=== PATIENT | female | born 1985 | race Caucasian/White ===

== ENCOUNTER 2016-11-10 00:01 | Inpatient (IN) | payer OTHER ==
[~2016-11-10] VITALS: Ht 170.2 cm; Wt 127.0 kg
[~2016-11-10 00:01] MED LIST: AMPICILLIN SODIUM 2 GM VIAL ONE; OXYTOCIN/NORMAL SALINE 1,000 ML IV ONE
[2016-11-10] MEDS ORDERED: OXYTOCIN/NORMAL SALINE 1,000 ML IV SCH (00:25)
[2016-11-10] MEDS ORDERED: LR 1,000 ML IV SCH (00:25)
[2016-11-10] MEDS ORDERED: AMPICILLIN SODIUM 2 GM in NS 100 ML IV ONE (00:30)
[2016-11-10] MEDS ORDERED: TERBUTALINE SULFATE 1 MG/ML VIAL SUBCUT ONE (00:30)
[2016-11-10 00:51] VITALS: BP 118/61; PULSE 90; RESP 18; TEMP 98.5
[2016-11-10 01:39] LABS: BASOPHILS % (AUTO) 0.2 % (0.0-2.0); EOSINOPHILS # (AUTO) 0.1 K/uL (0.0-0.4); EOSINOPHILS % (AUTO) 0.7 % (0.0-4.0); HEMATOCRIT 30.2 % (36-48); HEMOGLOBIN 10.2 g/dL (12.0-16.0); LYMPHOCYTES # (AUTO) 2.1 K/uL (1.0-5.5); LYMPHOCYTES % (AUTO) 23.6 % (20.5-51.5); MEAN CORPUSCULAR HEMOGLOBIN 30 pg (27-31); MEAN CORPUSCULAR HGB CONC 34 % (32-36); MEAN CORPUSCULAR VOLUME 89 fL (79.0-98.0); MONOCYTES # (AUTO) 1.1 K/uL (0.0-1.0); MONOCYTES % (AUTO) 11.9 % (1.7-9.3); NEUTROPHILS # (AUTO) 5.6 K/uL (1.8-7.7); NEUTROPHILS % (AUTO) 63.6 % (40.0-70.0); PLATELET COUNT (AUTO) 216 K/uL (130-430); RED CELL DISTRIBUTION WIDTH 13.6 % (9.0-15.0); WHITE BLOOD COUNT (AUTO) 8.9 K/uL (4.8-10.8)
[2016-11-10] MEDS ORDERED: AMPICILLIN SODIUM 1 GM VIAL ONE (03:45)
[2016-11-10] MEDS: AMPICILLIN SODIUM 1 GM in NS 50 ML IV SCH ×3 (05:00→12:56)
[2016-11-10] MEDS ORDERED: FENT2mCg/mL-ROPIVA0.2%/NS EPID 150 ML EP ONE (07:19)
[2016-11-10] MEDS ORDERED: fentaNYL CITRATE/PF 100 MCG/2 ML AMP ONE (07:56)
[2016-11-10] MEDS ORDERED: LR 500 ML IV ONE (08:24)
[2016-11-10] MEDS ORDERED: fentaNYL CITRATE/PF 100 MCG/2 ML AMP EP ONE (08:30)
[2016-11-10] MEDS ORDERED: ePHEDrine sulfate 50 MG/ML VIAL IVP PRN (08:30)
[2016-11-10] MEDS ORDERED: FENT2mCg/mL-ROPIVA0.2%/NS EPID 150 ML EP SCH (08:30)
[2016-11-10] MEDS ORDERED: OXYTOCIN/NORMAL SALINE 1,000 ML IV ONE (17:33)
[2016-11-10] MEDS ORDERED: IBUPROFEN 600 MG TABLET ONE (17:38)
[2016-11-10] MEDS ORDERED: GLYCERIN/WITCH HAZEL (TUCKS PADS) TP PRN (17:45)
[2016-11-10] MEDS ORDERED: DERMOPLAST SPRAY TP PRN (17:45)
[2016-11-10] MEDS ORDERED: DOCUSATE SODIUM 100 MG CAPSULE PO PRN (17:45)
[2016-11-10] MEDS ORDERED: OXYCODONE/ACETAMINOPHEN 5-325 TABLET PO PRN ×2 (17:45)
[2016-11-10] MEDS ORDERED: LANOLIN 7 GM OINT. TP PRN (17:45)
[2016-11-10] MEDS ORDERED: ANUSOL 1 EA SUPP.RECT (PREPARATION H) RC PRN (17:45)
[2016-11-11] MEDS: IBUPROFEN 600 MG TABLET PO SCH ×2 (00:22→05:38)
[2016-11-11 08:41] LABS: BASOPHILS % (AUTO) 0.2 % (0.0-2.0); EOSINOPHILS % (AUTO) 0.4 % (0.0-4.0); HEMATOCRIT 24.6 % (36-48); LYMPHOCYTES # (AUTO) 1.8 K/uL (1.0-5.5); LYMPHOCYTES % (AUTO) 17.2 % (20.5-51.5); MEAN CORPUSCULAR HEMOGLOBIN 31 pg (27-31); MEAN CORPUSCULAR HGB CONC 35 % (32-36); MEAN CORPUSCULAR VOLUME 90 fL (79.0-98.0); MONOCYTES # (AUTO) 1.1 K/uL (0.0-1.0); MONOCYTES % (AUTO) 10.8 % (1.7-9.3); NEUTROPHILS # (AUTO) 7.7 K/uL (1.8-7.7); NEUTROPHILS % (AUTO) 71.4 % (40.0-70.0); PLATELET COUNT (AUTO) 187 K/uL (130-430); RED BLOOD CELL COUNT(AUTO) 2.73 MIL/uL (4.2-6.2); RED CELL DISTRIBUTION WIDTH 13.7 % (9.0-15.0); WHITE BLOOD COUNT (AUTO) 10.6 K/uL (4.8-10.8)
[2016-11-11 09:13] LABS: HEMOGLOBIN 8.5 g/dL (12.0-16.0)
== END 2016-11-11 17:30 | disposition home or self-care (01) | DRG 775 ==
LOC: SPU 00:01
PROVIDERS: ADMIT Specialist; ATTEND Specialist
PROC: 10D07Z6 Extraction of Products of Conception, Vacuum, Via Natural or Artificial Opening (ICD-10-PCS; principal; 2016-11-10)
PROC: 3E0S3CZ (ICD-10-PCS; 2016-11-10)
PROC: 00HU33Z Insertion of Infusion Device into Spinal Canal, Percutaneous Approach (ICD-10-PCS; 2016-11-10)
PROC: 3E033VJ Introduction of Other Hormone into Peripheral Vein, Percutaneous Approach (ICD-10-PCS; 2016-11-10)
PROC: 0W8NXZZ Division of Female Perineum, External Approach (ICD-10-PCS; 2016-11-10)
PROC: 30233N1 Transfusion of Nonautologous Red Blood Cells into Peripheral Vein, Percutaneous Approach (ICD-10-PCS; 2016-11-10)
DX: O24.424 Gestational diabetes mellitus in childbirth, insulin controlled (principal); Z68.41 Body mass index [BMI] 40.0-44.9, adult; O99.824 Streptococcus B carrier state complicating childbirth; O99.214 Obesity complicating childbirth; E66.01 Morbid (severe) obesity due to excess calories; Z37.0 Single live birth; Z88.6 Allergy status to analgesic agent; Z3A.39 39 weeks gestation of pregnancy
CPT/HCPCS: 36415; 82947-TC; 85025; 86592; 86870; 86886; 86900; 86901; J0290; J2590; J2790; J3010; J7120

== ENCOUNTER 2016-11-28 23:09 | Emergency (ER) | payer OTHER ==
[~2016-11-28] VITALS: Ht 170.2 cm; Wt 117.9 kg
[2016-11-28 23:16] VITALS: BP 134/90; PULSE 85; RESP 18; TEMP 97.8; O2SAT 98
--- NOTE | 2016-11-28 23:16 | NUR ---
Patient to ER bed 7 to gown for evaluation. Side rails up. Report given to MAGDALENA Palmer.
--- NOTE | 2016-11-28 23:22 | NUR ---
ER at bedside examining patient.
--- NOTE | 2016-11-28 23:22 | NUR ---
Pt brought in by in stable condition. Pt c/o vaginal bleeding w/ large clots x2 hours. Pt stated that she has saturated 2 pads in the last 2 hours. Pt is post x3 wks. Pt denies any pain at this time. -dizziness -sob -chest pain. No acute distress noted at this time, will continue to monitor
[2016-11-28 23:58] LABS: BASOPHILS % (AUTO) 0.4 % (0.0-2.0); EOSINOPHILS # (AUTO) 0.2 K/uL (0.0-0.4); EOSINOPHILS % (AUTO) 2.8 % (0.0-4.0); HEMATOCRIT 30.5 % (36-48); HEMOGLOBIN 10.1 g/dL (12.0-16.0); LYMPHOCYTES # (AUTO) 2.3 K/uL (1.0-5.5); LYMPHOCYTES % (AUTO) 34.3 % (20.5-51.5); MEAN CORPUSCULAR HEMOGLOBIN 30 pg (27-31); MEAN CORPUSCULAR HGB CONC 33 % (32-36); MEAN CORPUSCULAR VOLUME 89 fL (79.0-98.0); MONOCYTES # (AUTO) 0.9 K/uL (0.0-1.0); MONOCYTES % (AUTO) 12.7 % (1.7-9.3); NEUTROPHILS # (AUTO) 3.4 K/uL (1.8-7.7); NEUTROPHILS % (AUTO) 49.8 % (40.0-70.0); PLATELET COUNT (AUTO) 315 K/uL (130-430); RED BLOOD CELL COUNT(AUTO) 3.42 MIL/uL (4.2-6.2); RED CELL DISTRIBUTION WIDTH 13.2 % (9.0-15.0); WHITE BLOOD COUNT (AUTO) 6.8 K/uL (4.8-10.8)
[2016-11-29 00:34] LABS: CALCIUM 8.8 mg/dL (8.4-11.0); CREATININE 0.9 mg/dL (0.55-1.30); POTASSIUM 3.9 mmol/L (3.5-5.1)
[2016-11-29 00:54] LABS: BILIRUBIN,URINE NEGATIVE (NEGATIVE); BLOOD, URINE 3+ (NEGATIVE); COLOR,URINE YELLOW (YELLOW); GLUCOSE,URINE NEGATIVE (NEGATIVE); KETONES,URINE NEGATIVE (NEGATIVE); LEUKOCYTE ESTERASE ,URINE 1+ (NEGATIVE); NITRITE, URINE NEGATIVE (NEGATIVE); PH,URINE 5.5 (5.0-8.0); PROTEIN URINE TRACE (NEGATIVE); UROBILINOGEN,URINE 0.2 (0.2-1.0)
[2016-11-29 00:57] LABS: CLARITY/URINE HAZY (CLEAR)
[2016-11-29 00:59] VITALS: BP 119/65; PULSE 65; RESP 12; O2SAT 98
--- NOTE | 2016-11-29 00:59 | NUR ---
Patient given written and verbal discharge instructions and verbalizes understanding. ER MD Shaikh discussed with patient the results and treatment provided. Given copies of tests performed in ER. Patient in stable condition. ID arm band removed. Rx of Ibuprofen 800 given. Patient educated on pain management and to follow up with PMD. Pain Scale 0/10. Opportunity for questions provided and answered.
[2016-11-29 01:04] LABS: BACTERIA,URINE MODERATE /HPF (None Seen); RBC,URINE >100 /HPF (0-3)
--- NOTE | 2016-12-04 11:14 | NUR ---
+Urine culture discussed with Dr. Isaacs Rx obtained for Macrobid 100mg PO BID x 7 Days, call placed to number on file message left
--- NOTE | 2016-12-04 16:15 | NUR ---
Spoke with Patient who verified name and , notified of change of prescription, to [facility] [phone]
== END 2016-11-29 00:59 | disposition home or self-care (01) ==
LOC: SED 23:09
DX: O72.1 Other immediate postpartum hemorrhage (principal); Z88.5 Allergy status to narcotic agent
CPT/HCPCS: 36415; 80048; 81000-TC; 81025; 85025; 87086; 87186-TC; 99284